=== PATIENT | male | born 1970 | race Caucasian/White ===

== ENCOUNTER 2017-07-13 14:39 | Emergency (ER) | payer OTHER ==
[~2017-07-13] VITALS: Wt 122.5 kg
[~2017-07-13 14:39] MED LIST: BAYER ASPIRIN C81 MG PO; FLONASE ALLERG9.9 ML NAS; PREDNISONE10 MG PO; ROBITUSSIN AC 110 ML PO; VITAMIN E1000 UNI1 PO
[2017-07-13] MEDS ORDERED: DAILY VALUE1 EACH PO (14:55)
[2017-07-13] MEDS ORDERED: NAPROSYN500 MG PO (16:32)
[2017-07-13] MEDS ORDERED: CYCLOBENZAPRINE5 M3 PO (16:32)
== END 2017-07-13 16:02 | disposition home or self-care (01) ==
LOC: ED 14:39
DX: S40.011A Contusion of right shoulder, initial encounter (principal); M62.838 Other muscle spasm; Z79.82 Long term (current) use of aspirin; W01.0XXA Fall on same level from slipping, tripping and stumbling without subsequent striking against object, initial encounter; Y93.89 Activity, other specified; Y92.89 Other specified places as the place of occurrence of the external cause; Y99.8 Other external cause status

== ENCOUNTER 2018-09-24 23:24 | Emergency (ER) | payer OTHER ==
[~2018-09-24] VITALS: Ht 180.3 cm; Wt 121.6 kg
--- NOTE | ~2018-09-24 | EKG ---
[place], [place] ELECTROCARDIOGRAM REPORT NAME: AGNES PEARSON UNIT #: [id number] ROOM: DOCTOR: EPIPHANY DRAFT REPORT BIRTHDATE: [birth year] [facility] Test Date: 2018-09-24 Test Time: 23:53:33 Pat Name: AGNES PEARSON Department: ER Room: Gender: Supervisor Sound Technician: Purvi Kline : 1970 Requested By: BRADLEY GRANT Order Number: [id number] Reading MD: Wilver Francois MD Measurements Intervals [place] Rate: 87 P: 30 DC: 152 QRS: 42 QRSD: 103 T: 8 QT: 348 QTc: 419 Interpretive Statements Sinus rhythm ST elev, probable normal early repol pattern Electronically Signed On 09-27-2018 7:00:48 PDT by Wilver Francois MD CM:EKGRPT:ELECTROCARDIOGRAM REPORT [id number] BRADLEY GRANT MD EPIPHANY DRAFT REPORT BRADLEY GRANT MD
[~2018-09-24 23:24] MED LIST changes: +CYCLOBENZAPRINE5 M3 PO; +DAILY VALUE1 EACH PO; +NAPROSYN500 MG PO
[2018-09-25 00:22] LABS: BASO % 0.3 % (0.0-1.0); EOS # 0.1 10*3/uL (0.0-0.4); EOS % 1.3 % (1.0-4.0); HEMATOCRIT 44.5 % (42.0-52.0); HEMOGLOBIN 14.9 g/dl (14.0-18.0); LYMPH # 3.3 10*3/uL (1.3-4.4); LYMPH % 32.9 % (27.0-41.0); MEAN CELL VOLUME 87.3 fl (80.0-94.0); MEAN CORPUSCULAR HGB 29.2 pg (27.0-31.0); MEAN CORPUSCULAR HGB CONC 33.5 g/dl (33.0-37.0); MEAN PLATELET VOLUME 9.7 fl (9.6-12.3); MONO # 0.6 10*3/uL (0.1-1.0); MONO % 6.4 % (3.0-9.0); NEUT # 5.8 10*3/uL (2.3-7.9); NEUT % 58.6 % (47.0-73.0); PLATELET COUNT AUTOMATED 215 10*3/uL (130-400); RED CELL DISTRI WIDTH 12.9 % (0-14.5); WHITE BLOOD COUNT 9.9 10*3/uL (4.8-10.8)
[2018-09-25 00:37] LABS: ALBUMIN 3.9 gm/dl (3.1-4.5); ALKALINE PHOSPHATASE 77 U/L (45-117); BUN 13 mg/dl (7-24); CHLORIDE 102 mmol/L (98-107); CREATININE 0.86 mg/dL (0.70-1.30); POTASSIUM 4.2 mmol/L (3.5-5.1); SGOT/AST 30 IU/L (3-35); SGPT/ALT 48 U/L (12-78); SODIUM 137 mmol/L (136-145); TOTAL PROTEIN 7.5 gm/dL (6.4-8.2); TROPONIN I < 0.015 ng/ml (<0.045)
== END 2018-09-25 01:56 | disposition home or self-care (01) ==
LOC: ED 23:24
PROVIDERS: Emergency Medicine Emergency Medical Services
DX: M54.12 Radiculopathy, cervical region (principal); K08.89 Other specified disorders of teeth and supporting structures; H53.8 Other visual disturbances; E66.9 Obesity, unspecified; Z79.82 Long term (current) use of aspirin; Z79.899 Other long term (current) drug therapy